=== PATIENT | female | born 1940 | race African-American/Black ===

== ENCOUNTER 2017-08-25 09:45 | Emergency (ER) | payer OTHER ==
[~2017-08-25] VITALS: Ht 165.1 cm; Wt 86.2 kg
[2017-08-25 09:57] VITALS: BP 170/80
[2017-08-25 10:02] VITALS: BP 170/80
--- NOTE | 2017-08-25 10:08 | NUR ---
PT AMBULATES TO BED 3
--- NOTE | 2017-08-25 10:26 | NUR ---
77 YO F BIB SELF W/ C/O RT UPPER TOOTH ACHE AFFECTING HER WHOLE R/T SIDE OF HER FACE/EAR X 1 WK; HAS BEEN TAKING MOTRIN, TYLENL, ORAL GEL, ALIEVE WITH NO RELIEF. PT REPORTS SHE SAW THE DENTIST 2 DAYS AGO BECAUSE THE PAIN WAS VERY BAD, TOLD BY DENTIST THE PAIN WAS RELATED TO THE TOOTH. TOOTH FELL OUT ON ITS OWN YESTERDAY AND PAIN IS WORSE. PT REPORTS HAVING APT FOR ORAL SURGERY August, BUT PAIN IS TOO EXCRUTIATING TO WAIT. PT DENIES N/V/D/FEVER/CHILLS. AAOX4. GCS 15. CMS INTACT. RR EVEN AND UNLABORED. LUNGS BILATERALLY CLEAR. ABD SOFT, NON-TENDER. ER MD GUZMAN NOTIFIED. PT NEEDS MET. SAFETY PRECAUTIONS IN PLACE. WILL CONTINUE TO MONITOR.
[2017-08-25 11:01] VITALS: BP 157/77
--- NOTE | 2017-08-25 11:02 | NUR ---
Patient discharged with v/s stable. Written and verbal after care instructions given and explained. Patient alert, oriented and verbalized understanding of instructions. Ambulatory with steady gait. All questions addressed prior to discharge. ID band removed. Patient advised to follow up with PMD. Rx of Tramadol and Clindamycin given. Patient educated on indication of medication including possible reaction and side effects. Opportunity to ask questions provided and answered.
== END 2017-08-25 11:02 | disposition home or self-care (01) ==
LOC: MED 09:45
DX: K04.7 Periapical abscess without sinus (principal); R03.0 Elevated blood-pressure reading, without diagnosis of hypertension; Z88.0 Allergy status to penicillin; Z88.6 Allergy status to analgesic agent
CPT/HCPCS: 99283

== ENCOUNTER 2019-04-13 13:53 | Emergency (ER) | payer OTHER ==
[~2019-04-13] VITALS: Ht 165.1 cm; Wt 83.0 kg
[2019-04-13 14:00] VITALS: BP 150/73
--- NOTE | 2019-04-13 14:52 | NUR ---
PT SITTING IN LOBBY, NO SIGNS OF DISTRESS.
--- NOTE | 2019-04-13 15:42 | NUR ---
AMB TO BED 02 STEADY GAIT
[2019-04-13] MEDS ORDERED: traMADol 50 MG TAB PO ONE (15:50)
[2019-04-13] MEDS ORDERED: DEXAMETHASONE 4 MG/ML VIAL PO ONE (15:50)
--- NOTE | 2019-04-13 15:51 | NUR ---
78 Y/O FEMALE C/O SEVERE JOINT PAIN, BILAT KNEES/ELBOWS/HAND, THAT HAD BEEN GOING ON FOR WEEKS, AND THIS MORNING WAS THE WORST ITS EVER BEEN. PT HAS HISTORY OF RA, AND THIS MORNING RUBBED SOME OINTMENT (SIMILAR TO ICYHOT) ON TO PAINED AREAS. HAND JOINT ARE SWELLED, NONERYTHEMATIC, SKIN IN TACT. CMS+ BILAT UPPER/LOWER EXTR, WITH PAIN. PT ABLE TO AMBULATE TO BED. AAOX4. RESP EVEN AND UNLABORED. DENIES CP, SOB. LUNG SOUNDS CLEAR IN BILAT LOBES. PMH: HTN, DM, RA, LUPUS ALLERGIES: PENICILLIN, CODEINE, OXYCODONE
[2019-04-13 17:10] VITALS: BP 150/73
== END 2019-04-13 17:10 | disposition home or self-care (01) ==
LOC: MED 13:53
DX: M13.862 Other specified arthritis, left knee (principal); M13.861 Other specified arthritis, right knee; M13.822 Other specified arthritis, left elbow; M13.821 Other specified arthritis, right elbow; M13.812 Other specified arthritis, left shoulder; M13.811 Other specified arthritis, right shoulder; M79.89 Other specified soft tissue disorders; E11.9 Type 2 diabetes mellitus without complications; I10 Essential (primary) hypertension; Z88.0 Allergy status to penicillin; Z88.5 Allergy status to narcotic agent
CPT/HCPCS: 82948; 99283; J1100

== ENCOUNTER 2019-10-31 10:33 | Emergency (ER) | payer OTHER ==
[~2019-10-31] VITALS: Ht 165.1 cm; Wt 73.9 kg
[2019-10-31 10:39] VITALS: BP 132/75
--- NOTE | 2019-10-31 10:56 | NUR ---
79 YO FEMALE C/O JOINTS PAIN X 4 MONTHS. PT STATED THAT HER PCP CANCELLED HER APPOINTMENT AND NEEDS HER MEDS FILLED BEFORE THE END OF THE MONTH MED HX: ARTHRITIS .
[2019-10-31] MEDS ORDERED: traMADol 50 MG TAB PO ONE (11:30)
[2019-10-31 11:58] VITALS: BP 132/75
--- NOTE | 2019-10-31 11:59 | NUR ---
Patient discharged with v/s stable. Written and verbal after care instructions given and explained. Patient alert, oriented and verbalized understanding of instructions. Ambulatory with steady gait. All questions addressed prior to discharge. ID band removed. Patient advised to follow up with PMD. Rx of TRAMADOL AND MEDROL given. Patient educated on indication of medication including possible reaction and side effects. Opportunity to ask questions provided and answered.
== END 2019-10-31 11:59 | disposition home or self-care (01) ==
LOC: MED 10:33
DX: M06.9 Rheumatoid arthritis, unspecified (principal); E11.9 Type 2 diabetes mellitus without complications; I10 Essential (primary) hypertension; Z88.0 Allergy status to penicillin; Z88.5 Allergy status to narcotic agent; Z88.8 Allergy status to other drugs, medicaments and biological substances
CPT/HCPCS: 99283

== ENCOUNTER 2021-01-12 12:46 | Emergency (ER) | payer OTHER ==
[~2021-01-12] VITALS: Ht 165.1 cm; Wt 73.9 kg
[2021-01-12 12:54] VITALS: BP 146/75
--- NOTE | 2021-01-12 13:10 | NUR ---
80 Y/O F BIB DAUGHTER FROM HOME, C/O CONSTIPATED FOR 1 WEEK, HAS BEEN TAKING MAGNESIUM CITRATE THIS MORNING WITH NO RELIEF AND MOM. PT STATES SHE HAS BEEN TRYING TO DIG IT OUT WITH FINGERS, UNSUCCESSFUL. ABD ID SOFT AND TENDER TO TOUCH. BS HYPOACTIVE X 4. PMH: DM2, VALVE HEART CONDITION, RA, KNEE SURGERY, LUPUS, VERTIGO NKA MED: AMLODIPINE, METFORMIN, VIT D, B12, IRON
[2021-01-12] MEDS ORDERED: SODIUM PHOSPHATE 118 ML ENEM RC ONE (13:20)
--- NOTE | 2021-01-12 13:29 | NUR ---
PT TAKEN TO RADIOLOGY FOR CT.
--- NOTE | 2021-01-12 13:50 | NUR ---
PT RETURNED FROM CT BACK TO ROOM
--- NOTE | 2021-01-12 14:24 | NUR ---
PT HAD AN XL BM, BROWN. SOFT STOOL AT THIS TIME.
[2021-01-12 15:02] LABS: BASOPHILS % (AUTO) 0.4 % (0.0-2.0); EOSINOPHILS % (AUTO) 0.2 % (0.0-4.0); HEMATOCRIT 36.2 % (36-48); HEMOGLOBIN 11.9 g/dL (12.0-16.0); LYMPHOCYTES # (AUTO) 1.1 K/uL (2.5-16.5); LYMPHOCYTES % (AUTO) 14.7 % (20.5-51.1); MEAN CORPUSCULAR HEMOGLOBIN 25 pg (27-31); MEAN CORPUSCULAR HGB CONC 33 g/dL (33-37); MEAN CORPUSCULAR VOLUME 76.9 fL (80-94); MONOCYTES # (AUTO) 0.6 K/uL (0.8-1.0); MONOCYTES % (AUTO) 8.1 % (1.7-9.3); NEUTROPHILS # (AUTO) 5.9 K/uL (1.8-7.7); NEUTROPHILS % (AUTO) 76.6 % (42.2-75.2); PLATELET COUNT (AUTO) 321 K/uL (140-450); RED BLOOD CELL COUNT(AUTO) 4.71 MIL/uL (4.20-5.40); RED CELL DISTRIBUTION WIDTH 20.7 % (11.6-13.7); WHITE BLOOD COUNT (AUTO) 7.6 K/uL (4.8-10.8)
--- NOTE | 2021-01-12 15:10 | NUR ---
PT HAD 2ND XL SOFT BM, BROWN IN COLOR. PERICARE PROVIDED
[2021-01-12 15:42] LABS: ALBUMIN 3.3 g/dL (3.4-5.0); ANION GAP 12.7 (8-16); ASPARTATE AMINOTRANSFERASE 16 U/L (15-37); CARBON DIOXIDE 30.4 mmol/L (21-32); CHLORIDE 103 mmol/L (98-107); CREATININE 1.1 mg/dL (0.6-1.3); GLUCOSE 120 mg/dL (74-106); POTASSIUM 4.1 mmol/L (3.5-5.1); SODIUM SERUM 142 mmol/L (136-145); THYROID STIMULATING HORMONE 1.36 uIU/mL (0.34-3.74); TOTAL BILIRUBIN 0.2 mg/dL (0.0-1.0); UREA NITROGEN, BLOOD 15 mg/dL (7-18)
--- NOTE | 2021-01-12 16:11 | NUR ---
Patient appears to be resting comfortably in bed. Vital Signs within normal limits. Respirations even and unlabored.
[2021-01-12] MEDS ORDERED: DOCU-2 PO (16:25)
[2021-01-12] MEDS ORDERED: POLY17PD46 PO (16:25)
[2021-01-12 16:33] VITALS: BP 134/70
--- NOTE | 2021-01-12 16:33 | NUR ---
Patient discharged with v/s stable. Written and verbal after care instructions given and explained. Patient alert, oriented and verbalized understanding of instructions. Ambulatory with steady gait. All questions addressed prior to discharge. ID band removed. Patient advised to follow up with PMD. Rx of DOCUSATE SODIUM/MIRALAX given. Patient educated on indication of medication including possible reaction and side effects. Opportunity to ask questions provided and answered.
== END 2021-01-12 16:33 | disposition home or self-care (01) ==
LOC: MED 12:46
DX: K59.00 Constipation, unspecified (principal); E11.9 Type 2 diabetes mellitus without complications; I10 Essential (primary) hypertension; Z79.899 Other long term (current) drug therapy; Z98.890 Other specified postprocedural states
CPT/HCPCS: 36415; 80053; 84443; 85025; 99285